=== PATIENT | male | born 1990 | race Caucasian/White ===

== ENCOUNTER 2019-01-16 10:28 | Inpatient (IN) | payer OTHER ==
[~2019-01-16] VITALS: Ht 175.3 cm; Wt 79.4 kg
[2019-01-16] MEDS ORDERED: KETOROLAC 15 MG/ML VIAL. IV ONE (10:30)
[2019-01-16] MEDS ORDERED: IV NORMAL SALINE 1000ML BAG 1,000 ML IV ONE ×2 (11:00→13:30)
[2019-01-16 11:06] LABS: BASO % 0 % (0-3); EOS % 0 % (0-3); HEMOGLOBIN 18.6 g/dL (13.0-17.5); LYMPH # 1.1 x10^3/uL (1.0-4.8); LYMPH % 6 % (24-48); MEAN CORPUSCULAR HEMOGLOBIN 30 pg (25-35); MEAN CORPUSCULAR HGB CONC 34 g/dL (31-37); MEAN CORPUSCULAR VOLUME 89 fL (79-100); MONO # 1.8 x10^3/uL (0.0-1.1); MONO % 10 % (0-9); NEUT # 15.4 x10^3uL (1.8-7.7); NEUT % 84 % (31-73); PLATELET COUNT 383 x10^3/uL (140-400); RED BLOOD COUNT 6.17 x10^6/uL (4.30-5.70); RED CELL DISTRIBUTION WIDTH 13.1 % (11.5-14.5); WHITE BLOOD COUNT 18.3 x10^3/uL (4.0-11.0)
[2019-01-16 11:15] LABS: CALCIUM 10.2 mg/dL (8.5-10.1); CREATININE 4.7 mg/dL (0.7-1.3); GFR 14.9; POTASSIUM 3.7 mmol/L (3.5-5.1)
[2019-01-16 11:20] LABS: ALBUMIN 5.7 g/dL (3.4-5.0); ALBUMIN/GLOBULIN RATIO 1.2 (1.0-1.7); TOTAL BILIRUBIN 1.1 mg/dL (0.2-1.0); TOTAL PROTEIN 10.4 g/dL (6.4-8.2)
[2019-01-16 11:28] LABS: % ATYL 1 % (0-0); % BANDS 2 % (0-9); % LYMPHS 4 % (24-48); % MONOS 7 % (0-10); % SEGS 86 % (35-66); PLT ESTIMATE ADEQUATE (ADEQUATE)
[2019-01-16] MEDS ORDERED: LIDOCAINE 2%/EPI 1:100,000 20 ML VIAL. IJ ONE (11:30)
[2019-01-16] MEDS ORDERED: NEOMY/BACITR/POLYMYXIN OINT PACKET. TP ONE (11:30)
[2019-01-16] MEDS ORDERED: ONDANSETRON PF 4 MG/2 ML VIAL. IV ONE (11:30)
[2019-01-16] MEDS ORDERED: FAMOTIDINE 20 MG/2 ML VIAL IVP ONE (11:30)
--- NOTE | 2019-01-16 11:30 | RAD ---
Right elbow, 3 views, 01/16/2019: HISTORY: Elbow laceration No fracture or dislocation is identified. No joint effusion is seen. A bandage overlies the soft tissues along the posterior aspect of the elbow. A tiny radiopacity projected over the soft tissues along the posterior aspect of the proximal ulna may lie within the soft tissues or on the surface of the patient. Clinical correlation is suggested. IMPRESSION: No significant bony abnormality is detected. Electronically signed by: Atul Howard MD (01/16/2019 11:27 AM) [facility]
[2019-01-16] MEDS ORDERED: DIPHTH,PERTUSS(ACELL),TET TOX 0.5 ML DISP.SYRIN. VAX IM ONE (11:45)
[2019-01-16] MEDS ORDERED: LIDO:MAALOX 1:1 20 ML SINGLE DOSE. ONE (12:14)
[2019-01-16] MEDS ORDERED: LIDO:MAALOX 1:1 20 ML SINGLE DOSE. PO ONE (12:30)
--- NOTE | 2019-01-16 12:35 | PHYS DOC ---
Past Medical History Past Medical History: No Pertinent History Past Surgical History: Other Additional Past Surgical Histo: HERNIA,ORCHIECTOMY Alcohol Use: Occasionally Drug Use: Marijuana Adult General Chief Complaint Chief Complaint: NAUSEA/VOMITING/DIARRHA HPI HPI Patient is a 28 year old male who presents with nausea vomiting and diarrhea since 4 AM yesterday morning. In addition, the patient presents with 2 right elbow lacerations sustained while closing a window in preparation of coming to the emergency department today. He reports the nausea, vomiting and diarrhea began after eating bad eggs at [id number]. Patient also states some mild head pain from falling after he hurt his arm. Pt states he fainted when he saw the blood on his arm, causing him to fall and hit his head. Patient denies any blood in vomitus or stool. Pt reports feeling very dehydrated at this time, but has no other complaints at this time. Review of Systems Review of Systems Constitutional: Denies fever or chills [] Eyes: Denies change in visual acuity, redness, or eye pain [] HENT: Denies nasal congestion or sore throat [] Respiratory: Denies cough or shortness of breath [] Cardiovascular: No additional information not addressed in HPI [] GI: Denies abdominal pain, nausea, vomiting, bloody stools or diarrhea [] : Denies dysuria or hematuria [] Musculoskeletal: Denies back pain or joint pain [] Integument: Denies rash or skin lesions [] Neurologic: Denies headache, focal weakness or sensory changes [] Endocrine: Denies polyuria or polydipsia [] All other systems were reviewed and found to be within normal limits, except as documented in this note. Current Medications Current Medications Current Medications Medications (Trade) Dose Ordered Sig/Candelaria Start Time Stop Time Status Last Admin Dose Admin Diphtheria/ Tetanus/Acell Pertussis (Boostrix) 0.5 ml ONCE ONCE 01/16/19 11:45 01/16/19 11:46 DC 01/16/19 12:13 0.5 ML Famotidine (Pepcid Vial) 20 mg 1X ONCE 01/16/19 11:30 01/16/19 11:31 DC 01/16/19 12:10 20 MG Ketorolac Tromethamine (Toradol 15mg Vial) 15 mg 1X ONCE 01/16/19 10:30 01/16/19 11:05 DC 01/16/19 12:10 15 MG Lidocaine/ Epinephrine (LIDOCAINE 2%-EPI 1:100,000 multi-dose) 20 ml 1X ONCE 01/16/19 11:30 01/16/19 11:31 DC 01/16/19 12:10 20 ML Lorazepam (Ativan Inj) 0.5 mg 1X ONCE 01/16/19 14:00 01/16/19 14:01 DC 01/16/19 13:48 0.5 MG Multi-Ingredient Mouthwash/Gargle (Gi Cocktail) 20 ml STK-MED ONCE 01/16/19 12:14 01/16/19 12:15 DC Neomycin/ Polymyxin/ Bacitracin (Triple Antibiotic Ointment) 1 pkt 1X ONCE 01/16/19 11:30 01/16/19 11:31 DC 01/16/19 12:00 1 PKT Ondansetron HCl (Zofran) 4 mg 1X ONCE 01/16/19 11:30 01/16/19 11:31 DC 01/16/19 12:17 4 MG Sodium Chloride 1,000 ml @ 1,000 mls/hr 1X ONCE 01/16/19 13:30 01/16/19 14:29 01/16/19 13:26 1,000 MLS/HR Allergies Allergies Allergies Coded Allergies Type Severity Reaction Last Updated Verified No Known Drug Allergies 01/16/19 No Physical Exam Physical Exam Constitutional: Well developed, well nourished, no acute distress, non-toxic appearance. [] HENT: Normocephalic, atraumatic, bilateral external ears normal, oropharynx moist, no oral exudates, nose normal. [] Eyes: PERRLA, EOMI, conjunctiva normal, no discharge. [] Neck: Normal range of motion, no tenderness, supple, no stridor. [] Cardiovascular:Heart rate regular rhythm, no murmur [] Lungs & Thorax: Bilateral breath sounds clear to auscultation [] Abdomen: Bowel sounds normal, soft, no tenderness, no masses, no pulsatile masses. [] Skin: Warm, dry, no erythema, no rash. [] Back: No tenderness, no CVA tenderness. [] Extremities: No tenderness, no cyanosis, no clubbing, ROM intact, no edema. [] Neurologic: Alert and oriented X 3, normal motor function, normal sensory function, no focal deficits noted. [] Psychologic: Affect normal, judgement normal, mood normal. [] Current Patient Data Vital Signs Vital Signs Date Time Temp Pulse Resp B/P (MAP) Pulse Ox O2 Delivery O2 Flow Rate FiO2 01/16/19 11:09 82 127/90 (102) 97 Room Air 01/16/19 10:58 99.6 18 99.6 Lab Values Laboratory Tests Test 01/16/19 10:30 White Blood Count 18.3 x10^3/uL (4.0-11.0) H Red Blood Count 6.17 x10^6/uL (4.30-5.70) H Hemoglobin 18.6 g/dL (13.0-17.5) H Hematocrit 55.0 % (39.0-53.0) H Mean Corpuscular Volume 89 fL (79-100) Mean Corpuscular Hemoglobin 30 pg (25-35) Mean Corpuscular Hemoglobin Concent 34 g/dL (31-37) Red Cell Distribution Width 13.1 % (11.5-14.5) Platelet Count 383 x10^3/uL (140-400) Neutrophils (%) (Auto) 84 % (31-73) H Lymphocytes (%) (Auto) 6 % (24-48) L Monocytes (%) (Auto) 10 % (0-9) H Eosinophils (%) (Auto) 0 % (0-3) Basophils (%) (Auto) 0 % (0-3) Neutrophils # (Auto) 15.4 x10^3uL (1.8-7.7) H Lymphocytes # (Auto) 1.1 x10^3/uL (1.0-4.8) Monocytes # (Auto) 1.8 x10^3/uL (0.0-1.1) H Eosinophils # (Auto) 0.0 x10^3/uL (0.0-0.7) Basophils # (Auto) 0.0 x10^3/uL (0.0-0.2) Segmented Neutrophils % 86 % (35-66) H Band Neutrophils % 2 % (0-9) Lymphocytes % 4 % (24-48) L Atypical Lymphocytes % (Manual) 1 % (0-0) H Monocytes % 7 % (0-10) Platelet Estimate Adequate (ADEQUATE) Sodium Level 138 mmol/L (136-145) Potassium Level 3.7 mmol/L (3.5-5.1) Chloride Level 95 mmol/L (98-107) L Carbon Dioxide Level 24 mmol/L (21-32) Anion Gap 19 (6-14) H Blood Urea Nitrogen 28 mg/dL (8-26) H Creatinine 4.7 mg/dL (0.7-1.3) H Estimated GFR (Cockcroft-Gault) 14.9 BUN/Creatinine Ratio 6 (6-20) Glucose Level 129 mg/dL (70-99) H Calcium Level 10.2 mg/dL (8.5-10.1) H Total Bilirubin 1.1 mg/dL (0.2-1.0) H Aspartate Amino Transferase (AST) 24 U/L (15-37) Alanine Aminotransferase (ALT) 22 U/L (16-63) Alkaline Phosphatase 66 U/L (46-116) Total Protein 10.4 g/dL (6.4-8.2) H Albumin 5.7 g/dL (3.4-5.0) H Albumin/Globulin Ratio 1.2 (1.0-1.7) Lipase 67 U/L (73-393) L Laboratory Tests 01/16/19 10:30 Laboratory Tests 01/16/19 10:30 EKG EKG [] Radiology/Procedures Radiology/Procedures PROCEDURE: ELBOW RIGHT 3V Right elbow, 3 views, 01/16/2019: HISTORY: Elbow laceration No fracture or dislocation is identified. No joint effusion is seen. A bandage overlies the soft tissues along the posterior aspect of the elbow. A tiny radiopacity projected over the soft tissues along the posterior aspect of the proximal ulna may lie within the soft tissues or on the surface of the patient. Clinical correlation is suggested. IMPRESSION: No significant bony abnormality is detected. Electronically signed by: Atul Howard MD (01/16/2019 11:27 AM) [facility] DICTATED and SIGNED BY: ATUL HOWARD MD DATE: 01/16/19 1127 Course & Med Decision Making Course & Med Decision Making Mr. Fuentes is a 28-year-old male who presented with nausea vomiting and diarrhea since yesterday morning. In addition he presented with a right arm laceration sustained while closing a window before coming to the emergency department. Patient was administered IV fluids due to dehydration. Zofran and Pepcid for nausea. 2 right arm lacerations were repaired with a total of 12 stitches. 7 stitches were used for the more lateral laceration. Patient requiring admission for further evaluation and treatment due to elevated creatinine. Discussed with Dr. Miguel who is in agreement with admission. Discussed findings and plan with patient and family, who acknowledge understanding and agreement. Dragon Disclaimer Dragon Disclaimer This electronic medical record was generated, in whole or in part, using a voice recognition dictation system. Departure Departure Impression: Primary Impression: Renal failure Additional Impressions: Nausea vomiting and diarrhea Laceration Disposition: ADMITTED INPATIENT Admitting Physician: Other (Riffel) Condition: GUARDED Problem Qualifiers Primary Impression: Renal failure Renal failure chronicity: acute Acute renal failure type: unspecified Qualified Codes: N17.9 - Acute kidney failure, unspecified SELENE MCGEE DO January 16, 2019 12:35
[2019-01-16] MEDS ORDERED: ONDANSETRON PF 4 MG/2 ML VIAL. IV PRN (14:15)
--- NOTE | 2019-01-16 14:22 | PDOC1 ---
History and Physical Date of Admission Date of Admission DATE: 01/16/19 TIME: 14:21 Identification/Chief Complaint Chief Complaint Right arm laceration, ONEIDA Source Source: Chart review, Patient History of Present Illness History of Present Illness Mr. Fuentes is a 28-year-old male w/ PMHx right orchiectomy 2/2 testicular cancer who presented with nausea vomiting and diarrhea since yesterday morning. In addition he presented with a right arm laceration sustained while closing a window which shattered before coming to the emergency department. Received tetanus vaccination and 2 right arm lacerations were repaired with a total of 12 stitches. 7 stitches were used for the more lateral laceration. He had labs drawn, found leukocytosis 18.3, Hb 18.6, Cr. 4.7 with protein 10.4. He is very anxious, has not been hospitalized since his orchiectomy and subsequent 2 hernia surgeries. 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 On further ROS he notes when he smokes marijuana he has these episodes of N/V and only feels better with a hot bath. Admitted for further care Past Medical History Cardiovascular: No pertinent hx Pulmonary: No pertinent hx GI: No pertinent hx Heme/Onc: Cancer (Right testicular cancer) Hepatobiliary: No pertinent hx Psych: Anxiety Rheumatologic: No pertinent hx Infectious disease: No pertinent hx ENT: No pertinent hx Renal/: No pertinent hx Endocrine: No pertinent hx Dermatology: No pertinent hx Past Surgical History Past Surgical History: Hernia Repair (x2 right inguinal), Other (R Orchiectomy) Family History Family History: Depression Social History Smoke: No ALCOHOL: occassional Drugs: Marijuana Current Problem List Problem List Problems Medical Problems: (1) Laceration Status: Acute (2) Nausea vomiting and diarrhea Status: Acute (3) Renal failure Status: Acute Current Medications Current Medications Current Medications Ondansetron HCl (Zofran) 4 mg 1X ONCE IV Last administered on 01/16/19at 12:17; Start 01/16/19 at 11:30; Stop 01/16/19 at 11:31; Status DC Famotidine (Pepcid Vial) 20 mg 1X ONCE IVP Last administered on 01/16/19at 12:10; Start 01/16/19 at 11:30; Stop 01/16/19 at 11:31; Status DC Ketorolac Tromethamine (Toradol 15mg Vial) 15 mg 1X ONCE IV Last administered on 01/16/19 12:10; Start 01/16/19 at 10:30; Stop 01/16/19 at 11:05; Status DC Sodium Chloride 1,000 ml @ 1,000 mls/hr 1X ONCE IV Last administered on 01/16/19at 12:09; Start 01/16/19 at 11:00; Stop 01/16/19 at 11:59; Status DC Neomycin/ Polymyxin/ Bacitracin (Triple Antibiotic Ointment) 1 pkt 1X ONCE TP Last administered on 01/16/19at 12:00; Start 01/16/19 at 11:30; Stop 01/16/19 at 11:31; Status DC Lidocaine/ Epinephrine (LIDOCAINE 2%-EPI 1:100,000 multi-dose) 20 ml 1X ONCE IJ Last administered on 01/16/19at 12:10; Start 01/16/19 at 11:30; Stop 01/16/19 at 11:31; Status DC Diphtheria/ Tetanus/Acell Pertussis (Boostrix) 0.5 ml ONCE ONCE VAX IM Last administered on 01/16/19at 12:13; Start 01/16/19 at 11:45; Stop 01/16/19 at 11:46; Status DC Multi-Ingredient Mouthwash/Gargle (Gi Cocktail) 20 ml 1X ONCE PO Last administered on 01/16/19at 12:19; Start 01/16/19 at 12:30; Stop 01/16/19 at 12:31; Status DC Multi-Ingredient Mouthwash/Gargle (Gi Cocktail) 20 ml STK-MED ONCE .ROUTE ; Start 01/16/19 at 12:14; Stop 01/16/19 at 12:15; Status DC Sodium Chloride 1,000 ml @ 1,000 mls/hr 1X ONCE IV Last administered on 01/16/19at 13:26; Start 01/16/19 at 13:30; Stop 01/16/19 at 14:29 Lorazepam (Ativan Inj) 0.5 mg 1X ONCE IV Last administered on 01/16/19at 13:48; Start 01/16/19 at 14:00; Stop 01/16/19 at 14:01; Status DC Ondansetron HCl (Zofran) 4 mg PRN Q8HRS PRN IV NAUSEA/VOMITING; Start 01/16/19 at 14:15; Stop 01/17/19 at 14:14 Sodium Chloride 1,000 ml @ 150 mls/hr Q6H40M IV ; Start 01/16/19 at 15:00; Stop 01/16/19 at 21:39 Allergies Allergies: Coded Allergies: No Known Drug Allergies (Unverified , 01/16/19) ROS General: YES: Fatigue; No: Chills, Night Sweats, Malaise, Appetite, Other PSYCHOLOGICAL ROS: YES: Anxiety; No: Behavioral Disorder, Concentration difficultie, Decreased libido, Depression, Disorientation, Hallucinations, Hostility, Irritablity, Memory difficulties, Mood Swings, Obsessive thoughts, Physical abuse, Sexual abuse, Sleep disturbances, Suicidal ideation, Other Eyes: No Blurry vision, No Decreased vision, No Double vision, No Dry eyes, No Excessive tearing, No Eye Pain, No Itchy Eyes, No Loss of vision, No Photophobia, No Scotomata, No Uses contacts, No Uses glasses, No Other HEENT: No: Heacaches, Visual Changes, Hearing change, Nasal congestion, Nasal discharge, Oral lesions, Sinus pain, Sore Throat, Epistaxis, Sneezing, Snoring, Tinnitus, Vertigo, Vocal changes, Other ALLERGY AND IMMUNOLOGY: No: Hives, Insect Bite Sensitivity, Itchy/Watery Eyes, Nasal Congestion, Post Nasal Drip, Seasonal Allergies, Other Hematological and Lymphatic: No: Bleeding Problems, Blood Clots, Blood Transfusions, Brusing, Night Sweats, Pallor, Swollen Lymph Nodes, Other ENDOCRINE: No: Breast Changes, Galactorrhea, Hair Pattern Changes, Hot Flashes, Malaise/lethargy, Mood Swings, Palpitations, Polydipsia/polyuria, Skin Changes, Temperature Intolerance, Unexpected Weight Changes, Other Breast: No New/Changing Breast Lumps, No Nipple changes, No Nipple discharge, No Other Respiratory: No: Cough, Hemoptysis, Orthopnea, Pleuritic Pain, Shortness of breath, SOB with excertion, Sputum Changes, Stridor, Tachypnea, Wheezing, Other Cardiovascular: No Chest Pain, No Palpitations, No Orthopnea, No Paroxysmal Noc. Dyspnea, No Edema, No Lt Headedness, No Other Gastrointestinal: Yes Nausea, Yes Diarrhea; No Vomiting, No Abdominal Pain, No Constipation, No Melena, No Hematochezia, No Other Genitourinary: No Dysuria, No Frequency, No Incontinence, No Hematuria, No Retention, No Discharge, No Urgency, No Pain, No Flank Pain, No Other, No , No , No , No , No , No , No Musculoskeletal: No Gait Disturbance, No Joint Pain, No Joint Stiffness, No J oint Swelling, No Muscle Pain, No Muscular Weakness, No Pain In:, No Swelling In:, No Other Neurological: No Behavorial Changes, No Bowel/Bladder ControlChng, No Confusion, No Dizziness, No Gait Disturbance, No Headaches, No Impaired Coord/balance, No Memory Loss, No Numbness/Tingling, No Seizures, No Speech Problems, No Tremors, No Visual Changes, No Weakness, No Other Skin: No Dry Skin, No Eczema, No Hair Changes, No Lumps, No Mole Changes, No Mottling, No Nail Changes, No Pruritus, No Rash, No Skin Lesion Changes, No Other, No Acne Physical Exam General: Alert, Oriented X3, Cooperative, No acute distress HEENT: Atraumatic, PERRLA, EOMI, Mucous membr. moist/pink Lungs: Clear to auscultation, Normal air movement Heart: S1S2, RRR, no gallops, no murmurs Abdomen: Normal bowel sounds, Soft, No tenderness, No hepatosplenomegaly, No masses Extremities: No clubbing, No cyanosis, No edema, Normal pulses, Other (Right elbow laceration) Skin: No rashes, No breakdown, No significant lesion Neuro: Normal gait, Normal speech, Strength at 5/5 X4 ext, Normal tone, Sensation intact, Cranial nerves 3-12 NL, Reflexes 2+ Psych/Mental Status: Mental status NL, Mood NL Vitals Vitals Vital Signs Date Time Temp Pulse Resp B/P (MAP) Pulse Ox O2 Delivery O2 Flow Rate FiO2 01/16/19 11:09 82 127/90 (102) 97 Room Air 01/16/19 10:58 99.6 18 99.6 Labs Labs Laboratory Tests Test 01/16/19 10:30 White Blood Count 18.3 x10^3/uL (4.0-11.0) Red Blood Count 6.17 x10^6/uL (4.30-5.70) Hemoglobin 18.6 g/dL (13.0-17.5) Hematocrit 55.0 % (39.0-53.0) Mean Corpuscular Volume 89 fL (79-100) Mean Corpuscular Hemoglobin 30 pg (25-35) Mean Corpuscular Hemoglobin Concent 34 g/dL (31-37) Red Cell Distribution Width 13.1 % (11.5-14.5) Platelet Count 383 x10^3/uL (140-400) Neutrophils (%) (Auto) 84 % (31-73) Lymphocytes (%) (Auto) 6 % (24-48) Monocytes (%) (Auto) 10 % (0-9) Eosinophils (%) (Auto) 0 % (0-3) Basophils (%) (Auto) 0 % (0-3) Neutrophils # (Auto) 15.4 x10^3uL (1.8-7.7) Lymphocytes # (Auto) 1.1 x10^3/uL (1.0-4.8) Monocytes # (Auto) 1.8 x10^3/uL (0.0-1.1) Eosinophils # (Auto) 0.0 x10^3/uL (0.0-0.7) Basophils # (Auto) 0.0 x10^3/uL (0.0-0.2) Segmented Neutrophils % 86 % (35-66) Band Neutrophils % 2 % (0-9) Lymphocytes % 4 % (24-48) Atypical Lymphocytes % (Manual) 1 % (0-0) Monocytes % 7 % (0-10) Platelet Estimate Adequate (ADEQUATE) Sodium Level 138 mmol/L (136-145) Potassium Level 3.7 mmol/L (3.5-5.1) Chloride Level 95 mmol/L (98-107) Carbon Dioxide Level 24 mmol/L (21-32) Anion Gap 19 (6-14) Blood Urea Nitrogen 28 mg/dL (8-26) Creatinine 4.7 mg/dL (0.7-1.3) Estimated GFR (Cockcroft-Gault) 14.9 BUN/Creatinine Ratio 6 (6-20) Glucose Level 129 mg/dL (70-99) Calcium Level 10.2 mg/dL (8.5-10.1) Total Bilirubin 1.1 mg/dL (0.2-1.0) Aspartate Amino Transf (AST/SGOT) 24 U/L (15-37) Alanine Aminotransferase (ALT/SGPT) 22 U/L (16-63) Alkaline Phosphatase 66 U/L (46-116) Creatine Kinase 273 U/L (39-308) Total Protein 10.4 g/dL (6.4-8.2) Albumin 5.7 g/dL (3.4-5.0) Albumin/Globulin Ratio 1.2 (1.0-1.7) Lipase 67 U/L (73-393) Laboratory Tests Test 01/16/19 10:30 White Blood Count 18.3 x10^3/uL (4.0-11.0) Red Blood Count 6.17 x10^6/uL (4.30-5.70) Hemoglobin 18.6 g/dL (13.0-17.5) Hematocrit 55.0 % (39.0-53.0) Mean Corpuscular Volume 89 fL (79-100) Mean Corpuscular Hemoglobin 30 pg (25-35) Mean Corpuscular Hemoglobin Concent 34 g/dL (31-37) Red Cell Distribution Width 13.1 % (11.5-14.5) Platelet Count 383 x10^3/uL (140-400) Neutrophils (%) (Auto) 84 % (31-73) Lymphocytes (%) (Auto) 6 % (24-48) Monocytes (%) (Auto) 10 % (0-9) Eosinophils (%) (Auto) 0 % (0-3) Basophils (%) (Auto) 0 % (0-3) Neutrophils # (Auto) 15.4 x10^3uL (1.8-7.7) Lymphocytes # (Auto) 1.1 x10^3/uL (1.0-4.8) Monocytes # (Auto) 1.8 x10^3/uL (0.0-1.1) Eosinophils # (Auto) 0.0 x10^3/uL (0.0-0.7) Basophils # (Auto) 0.0 x10^3/uL (0.0-0.2) Segmented Neutrophils % 86 % (35-66) Band Neutrophils % 2 % (0-9) Lymphocytes % 4 % (24-48) Atypical Lymphocytes % (Manual) 1 % (0-0) Monocytes % 7 % (0-10) Platelet Estimate Adequate (ADEQUATE) Sodium Level 138 mmol/L (136-145) Potassium Level 3.7 mmol/L (3.5-5.1) Chloride Level 95 mmol/L (98-107) Carbon Dioxide Level 24 mmol/L (21-32) Anion Gap 19 (6-14) Blood Urea Nitrogen 28 mg/dL (8-26) Creatinine 4.7 mg/dL (0.7-1.3) Estimated GFR (Cockcroft-Gault) 14.9 BUN/Creatinine Ratio 6 (6-20) Glucose Level 129 mg/dL (70-99) Calcium Level 10.2 mg/dL (8.5-10.1) Total Bilirubin 1.1 mg/dL (0.2-1.0) Aspartate Amino Transf (AST/SGOT) 24 U/L (15-37) Alanine Aminotransferase (ALT/SGPT) 22 U/L (16-63) Alkaline Phosphatase 66 U/L (46-116) Creatine Kinase 273 U/L (39-308) Total Protein 10.4 g/dL (6.4-8.2) Albumin 5.7 g/dL (3.4-5.0) Albumin/Globulin Ratio 1.2 (1.0-1.7) Lipase 67 U/L (73-393) Images Images Right elbow XR - No significant bony abnormality is detected. VTE Prophylaxis Ordered VTE Prophylaxis Devices: Yes VTE Pharmacological Prophylaxi: No Assessment/Plan Assessment/Plan A/P: ONEIDA - Likely vasomotor nephropathy from his vomiting and diarrhea. No more stools or vomiting at this time. Will give aggressive IVF and consult nephrology. Check urine lytes N/V - sounds likely marijuana hyperemesis syndrome, avoid marijuana. Could also be cyclical vomiting. Will monitor, antiemetics. Ok to eat Right elbow laceration - triple antibiotic ointment, remove sutures in 7-10 days Leukocytosis - technically meets SIRS criteria, could have been septic from a gastroenteritis recently. Would not treat this with antibiotics. He has no other signs of a different possible infectious source. Trend CBC H/O testicular cancer - no f/u since his orchiectomy at age 13. This was 2/2 an undescended teste. I have informed him he is at risk of left sided testicular cancer due to his prior history and should have f/u at some point for this Anxiety - likely 2/2 hospital setting from being hospitalized as a child. Will start buspar and give prn ativan Marijuana use disorder - advised to back off or quit FEN - General diet. NSS 125cc/hr PPX - SCDs FULL CODE Inpatient for ONEIDA likely 2/2 gastroenteritis, possibly needs 2 midnights. NGUYỄN VILLASENOR MD January 16, 2019 14:22
[2019-01-16] MEDS ORDERED: IV NORMAL SALINE 1000ML BAG 1,000 ML IV SCH (15:00)
[2019-01-16] MEDS ORDERED: LORazepam 0.5 MG TABLET PO PRN (16:15)
[2019-01-16] MEDS ORDERED: busPIRone 5 MG TABLET. PO PRN (16:15)
[2019-01-16] MEDS ORDERED: ACETAMINOPHEN 325 MG TABLET. PO PRN (16:15)
[2019-01-16 19:00] VITALS: BP 122/77
[2019-01-16 20:42] LABS: BILIRUBIN,URINE SMALL (NEG); CLARITY,URINE CLOUDY; COLOR,URINE AMBER; NITRITE,URINE NEGATIVE (NEG); PROTEIN,URINE 100 mg/dL (NEG-TRACE); UROBILINOGEN,URINE 0.2 mg/dL (0.2 mg/dL)
[2019-01-16 20:56] LABS: BACTERIA,URINE 0 /HPF (0-FEW); RBC,URINE 0 /HPF (0-2)
[2019-01-16 20:57] LABS: SQUAMOUS EPITHELIAL CELL,UR OCC /LPF
[2019-01-16 20:58] LABS: GRANULAR CASTS,URINE FEW /HPF; HYALINE CASTS, URINE MANY /HPF
[2019-01-16 23:00] VITALS: BP 140/81
[2019-01-17 07:00] VITALS: BP 107/59
--- NOTE | 2019-01-17 08:58 | PDOC ---
PROGRESS NOTES Chief Complaint Chief Complaint A/P: ONEIDA - Likely vasomotor nephropathy from his vomiting and diarrhea. No more stools or vomiting at this time. Will give aggressive IVF and consult nephrology. Check urine lytes N/V - sounds likely marijuana hyperemesis syndrome, avoid marijuana. Could also be cyclical vomiting. Will monitor, antiemetics. Ok to eat Right elbow laceration - triple antibiotic ointment, remove sutures in 7-10 days Leukocytosis - technically meets SIRS criteria, could have been septic from a gastroenteritis recently. Would not treat this with antibiotics. He has no other signs of a different possible infectious source. Trend CBC H/O testicular cancer - no f/u since his orchiectomy at age 13. This was 2/2 an undescended teste. I have informed him he is at risk of left sided testicular cancer due to his prior history and should have f/u at some point for this Anxiety - likely 2/2 hospital setting from being hospitalized as a child. Will start buspar and give prn ativan Marijuana use disorder - advised to back off or quit FEN - General diet. LR 150cc/hr PPX - SCDs FULL CODE Inpatient for ONEIDA likely 2/2 gastroenteritis, possibly needs 2 midnights. History of Present Illness History of Present Illness Mr. Fuentes is a 28-year-old male w/ PMHx right orchiectomy 2/2 testicular cancer who presented with nausea vomiting and diarrhea since yesterday morning. In addition he presented with a right arm laceration sustained while closing a window which shattered before coming to the emergency department. Received tetanus vaccination and 2 right arm lacerations were repaired with a total of 12 stitches. 7 stitches were used for the more lateral laceration. He had labs drawn, found leukocytosis 18.3, Hb 18.6, Cr. 4.7 with protein 10.4. He is very anxious, has not been hospitalized since his orchiectomy and subsequent 2 hernia surgeries. 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 Admitted for further care Overnight was anxious, this morning eating. Labs just now drawn, pending results. His right elbow is hurting him pretty badly today, 03/12. Good UOP Vitals Vitals Vital Signs Date Time Temp Pulse Resp B/P (MAP) Pulse Ox O2 Delivery O2 Flow Rate FiO2 01/17/19 07:00 98.1 49 18 107/59 (75) 98 Room Air 98.1 Physical Exam General: Alert, Oriented X3, Cooperative, No acute distress Abdomen: Normal bowel sounds, Soft, No tenderness, No hepatosplenomegaly, No masses Extremities: No clubbing, No cyanosis, No edema, Normal pulses, Other (Right elbow laceration) Skin: No rashes, No breakdown, No significant lesion Labs LABS Laboratory Tests Test 01/16/19 10:30 01/16/19 20:35 White Blood Count 18.3 x10^3/uL (4.0-11.0) Red Blood Count 6.17 x10^6/uL (4.30-5.70) Hemoglobin 18.6 g/dL (13.0-17.5) Hematocrit 55.0 % (39.0-53.0) Mean Corpuscular Volume 89 fL (79-100) Mean Corpuscular Hemoglobin 30 pg (25-35) Mean Corpuscular Hemoglobin Concent 34 g/dL (31-37) Red Cell Distribution Width 13.1 % (11.5-14.5) Platelet Count 383 x10^3/uL (140-400) Neutrophils (%) (Auto) 84 % (31-73) Lymphocytes (%) (Auto) 6 % (24-48) Monocytes (%) (Auto) 10 % (0-9) Eosinophils (%) (Auto) 0 % (0-3) Basophils (%) (Auto) 0 % (0-3) Neutrophils # (Auto) 15.4 x10^3uL (1.8-7.7) Lymphocytes # (Auto) 1.1 x10^3/uL (1.0-4.8) Monocytes # (Auto) 1.8 x10^3/uL (0.0-1.1) Eosinophils # (Auto) 0.0 x10^3/uL (0.0-0.7) Basophils # (Auto) 0.0 x10^3/uL (0.0-0.2) Segmented Neutrophils % 86 % (35-66) Band Neutrophils % 2 % (0-9) Lymphocytes % 4 % (24-48) Atypical Lymphocytes % (Manual) 1 % (0-0) Monocytes % 7 % (0-10) Platelet Estimate Adequate (ADEQUATE) Sodium Level 138 mmol/L (136-145) Potassium Level 3.7 mmol/L (3.5-5.1) Chloride Level 95 mmol/L (98-107) Carbon Dioxide Level 24 mmol/L (21-32) Anion Gap 19 (6-14) Blood Urea Nitrogen 28 mg/dL (8-26) Creatinine 4.7 mg/dL (0.7-1.3) Estimated GFR (Cockcroft-Gault) 14.9 BUN/Creatinine Ratio 6 (6-20) Glucose Level 129 mg/dL (70-99) Calcium Level 10.2 mg/dL (8.5-10.1) Total Bilirubin 1.1 mg/dL (0.2-1.0) Aspartate Amino Transf (AST/SGOT) 24 U/L (15-37) Alanine Aminotransferase (ALT/SGPT) 22 U/L (16-63) Alkaline Phosphatase 66 U/L (46-116) Creatine Kinase 273 U/L (39-308) Total Protein 10.4 g/dL (6.4-8.2) Albumin 5.7 g/dL (3.4-5.0) Albumin/Globulin Ratio 1.2 (1.0-1.7) Lipase 67 U/L (73-393) Urine Collection Type Unknown Urine Color Jenny Urine Clarity Cloudy Urine pH 5.0 Urine Specific [place] 1.025 Urine Protein 100 mg/dL (NEG-TRACE) Urine Glucose (UA) Negative mg/dL (NEG) Urine Ketones (Stick) Trace mg/dL (NEG) Urine Blood Negative (NEG) Urine Nitrite Negative (NEG) Urine Bilirubin Small (NEG) Urine Urobilinogen Dipstick 0.2 mg/dL (0.2 mg/dL) Urine Leukocyte Esterase Trace (NEG) Urine RBC 0 /HPF (0-2) Urine WBC 5-10 /HPF (0-4) Urine Squamous Epithelial Cells Occ /LPF Urine Transitional Epithelial Cells Occ /LPF Urine Bacteria 0 /HPF (0-FEW) Urine Hyaline Casts Many /HPF Urine Granular Casts Few /HPF Urine Mucus Mod /LPF Urine Random Creatinine 578.0 mg/dL (Not Establ.) Urine Random Total Protein 109.6 mg/dL (Not Establ.) Assessment and Plan Assessmemt and Plan Problems Medical Problems: (1) Laceration Status: Acute (2) Nausea vomiting and diarrhea Status: Acute (3) Renal failure Status: Acute Comment Review of Relevant I have reviewed the following items estelle (where applicable) has been applied. Labs Laboratory Tests Test 01/16/19 10:30 01/16/19 20:35 White Blood Count 18.3 x10^3/uL (4.0-11.0) Red Blood Count 6.17 x10^6/uL (4.30-5.70) Hemoglobin 18.6 g/dL (13.0-17.5) Hematocrit 55.0 % (39.0-53.0) Mean Corpuscular Volume 89 fL (79-100) Mean Corpuscular Hemoglobin 30 pg (25-35) Mean Corpuscular Hemoglobin Concent 34 g/dL (31-37) Red Cell Distribution Width 13.1 % (11.5-14.5) Platelet Count 383 x10^3/uL (140-400) Neutrophils (%) (Auto) 84 % (31-73) Lymphocytes (%) (Auto) 6 % (24-48) Monocytes (%) (Auto) 10 % (0-9) Eosinophils (%) (Auto) 0 % (0-3) Basophils (%) (Auto) 0 % (0-3) Neutrophils # (Auto) 15.4 x10^3uL (1.8-7.7) Lymphocytes # (Auto) 1.1 x10^3/uL (1.0-4.8) Monocytes # (Auto) 1.8 x10^3/uL (0.0-1.1) Eosinophils # (Auto) 0.0 x10^3/uL (0.0-0.7) Basophils # (Auto) 0.0 x10^3/uL (0.0-0.2) Segmented Neutrophils % 86 % (35-66) Band Neutrophils % 2 % (0-9) Lymphocytes % 4 % (24-48) Atypical Lymphocytes % (Manual) 1 % (0-0) Monocytes % 7 % (0-10) Platelet Estimate Adequate (ADEQUATE) Sodium Level 138 mmol/L (136-145) Potassium Level 3.7 mmol/L (3.5-5.1) Chloride Level 95 mmol/L (98-107) Carbon Dioxide Level 24 mmol/L (21-32) Anion Gap 19 (6-14) Blood Urea Nitrogen 28 mg/dL (8-26) Creatinine 4.7 mg/dL (0.7-1.3) Estimated GFR (Cockcroft-Gault) 14.9 BUN/Creatinine Ratio 6 (6-20) Glucose Level 129 mg/dL (70-99) Calcium Level 10.2 mg/dL (8.5-10.1) Total Bilirubin 1.1 mg/dL (0.2-1.0) Aspartate Amino Transf (AST/SGOT) 24 U/L (15-37) Alanine Aminotransferase (ALT/SGPT) 22 U/L (16-63) Alkaline Phosphatase 66 U/L (46-116) Creatine Kinase 273 U/L (39-308) Total Protein 10.4 g/dL (6.4-8.2) Albumin 5.7 g/dL (3.4-5.0) Albumin/Globulin Ratio 1.2 (1.0-1.7) Lipase 67 U/L (73-393) Urine Collection Type Unknown Urine Color Jenny Urine Clarity Cloudy Urine pH 5.0 Urine Specific [place] 1.025 Urine Protein 100 mg/dL (NEG-TRACE) Urine Glucose (UA) Negative mg/dL (NEG) Urine Ketones (Stick) Trace mg/dL (NEG) Urine Blood Negative (NEG) Urine Nitrite Negative (NEG) Urine Bilirubin Small (NEG) Urine Urobilinogen Dipstick 0.2 mg/dL (0.2 mg/dL) Urine Leukocyte Esterase Trace (NEG) Urine RBC 0 /HPF (0-2) Urine WBC 5-10 /HPF (0-4) Urine Squamous Epithelial Cells Occ /LPF Urine Transitional Epithelial Cells Occ /LPF Urine Bacteria 0 /HPF (0-FEW) Urine Hyaline Casts Many /HPF Urine Granular Casts Few /HPF Urine Mucus Mod /LPF Urine Random Creatinine 578.0 mg/dL (Not Establ.) Urine Random Total Protein 109.6 mg/dL (Not Establ.) Laboratory Tests Test 01/16/19 10:30 01/16/19 20:35 White Blood Count 18.3 x10^3/uL (4.0-11.0) Red Blood Count 6.17 x10^6/uL (4.30-5.70) Hemoglobin 18.6 g/dL (13.0-17.5) Hematocrit 55.0 % (39.0-53.0) Mean Corpuscular Volume 89 fL (79-100) Mean Corpuscular Hemoglobin 30 pg (25-35) Mean Corpuscular Hemoglobin Concent 34 g/dL (31-37) Red Cell Distribution Width 13.1 % (11.5-14.5) Platelet Count 383 x10^3/uL (140-400) Neutrophils (%) (Auto) 84 % (31-73) Lymphocytes (%) (Auto) 6 % (24-48) Monocytes (%) (Auto) 10 % (0-9) Eosinophils (%) (Auto) 0 % (0-3) Basophils (%) (Auto) 0 % (0-3) Neutrophils # (Auto) 15.4 x10^3uL (1.8-7.7) Lymphocytes # (Auto) 1.1 x10^3/uL (1.0-4.8) Monocytes # (Auto) 1.8 x10^3/uL (0.0-1.1) Eosinophils # (Auto) 0.0 x10^3/uL (0.0-0.7) Basophils # (Auto) 0.0 x10^3/uL (0.0-0.2) Segmented Neutrophils % 86 % (35-66) Band Neutrophils % 2 % (0-9) Lymphocytes % 4 % (24-48) Atypical Lymphocytes % (Manual) 1 % (0-0) Monocytes % 7 % (0-10) Platelet Estimate Adequate (ADEQUATE) Sodium Level 138 mmol/L (136-145) Potassium Level 3.7 mmol/L (3.5-5.1) Chloride Level 95 mmol/L (98-107) Carbon Dioxide Level 24 mmol/L (21-32) Anion Gap 19 (6-14) Blood Urea Nitrogen 28 mg/dL (8-26) Creatinine 4.7 mg/dL (0.7-1.3) Estimated GFR (Cockcroft-Gault) 14.9 BUN/Creatinine Ratio 6 (6-20) Glucose Level 129 mg/dL (70-99) Calcium Level 10.2 mg/dL (8.5-10.1) Total Bilirubin 1.1 mg/dL (0.2-1.0) Aspartate Amino Transf (AST/SGOT) 24 U/L (15-37) Alanine Aminotransferase (ALT/SGPT) 22 U/L (16-63) Alkaline Phosphatase 66 U/L (46-116) Creatine Kinase 273 U/L (39-308) Total Protein 10.4 g/dL (6.4-8.2) Albumin 5.7 g/dL (3.4-5.0) Albumin/Globulin Ratio 1.2 (1.0-1.7) Lipase 67 U/L (73-393) Urine Collection Type Unknown Urine Color Jenny Urine Clarity Cloudy Urine pH 5.0 Urine Specific [place] 1.025 Urine Protein 100 mg/dL (NEG-TRACE) Urine Glucose (UA) Negative mg/dL (NEG) Urine Ketones (Stick) Trace mg/dL (NEG) Urine Blood Negative (NEG) Urine Nitrite Negative (NEG) Urine Bilirubin Small (NEG) Urine Urobilinogen Dipstick 0.2 mg/dL (0.2 mg/dL) Urine Leukocyte Esterase Trace (NEG) Urine RBC 0 /HPF (0-2) Urine WBC 5-10 /HPF (0-4) Urine Squamous Epithelial Cells Occ /LPF Urine Transitional Epithelial Cells Occ /LPF Urine Bacteria 0 /HPF (0-FEW) Urine Hyaline Casts Many /HPF Urine Granular Casts Few /HPF Urine Mucus Mod /LPF Urine Random Creatinine 578.0 mg/dL (Not Establ.) Urine Random Total Protein 109.6 mg/dL (Not Establ.) Medications Current Medications Ondansetron HCl (Zofran) 4 mg 1X ONCE IV Last administered on 01/16/19at 12:17; Start 01/16/19 at 11:30; Stop 01/16/19 at 11:31; Status DC Famotidine (Pepcid Vial) 20 mg 1X ONCE IVP Last administered on 01/16/19at 12:10; Start 01/16/19 at 11:30; Stop 01/16/19 at 11:31; Status DC Ketorolac Tromethamine (Toradol 15mg Vial) 15 mg 1X ONCE IV Last administered on 01/16/19at 12:10; Start 01/16/19 at 10:30; Stop 01/16/19 at 11:05; Status DC Sodium Chloride 1,000 ml @ 1,000 mls/hr 1X ONCE IV Last administered on 01/16/19at 12:09; Start 01/16/19 at 11:00; Stop 01/16/19 at 11:59; Status DC Neomycin/ Polymyxin/ Bacitracin (Triple Antibiotic Ointment) 1 pkt 1X ONCE TP Last administered on 01/16/19at 12:00; Start 01/16/19 at 11:30; Stop 01/16/19 at 11:31; Status DC Lidocaine/ Epinephrine (LIDOCAINE 2%-EPI 1:100,000 multi-dose) 20 ml 1X ONCE IJ Last administered on 01/16/19at 12:10; Start 01/16/19 at 11:30; Stop 01/16/19 at 11:31; Status DC Diphtheria/ Tetanus/Acell Pertussis (Boostrix) 0.5 ml ONCE ONCE VAX IM Last administered on 01/16/19 12:13; Start 01/16/19 at 11:45; Stop 01/16/19 at 11:46; Status DC Multi-Ingredient Mouthwash/Gargle (Gi Cocktail) 20 ml 1X ONCE PO Last administered on 01/16/19at 12:19; Start 01/16/19 at 12:30; Stop 01/16/19 at 12:31; Status DC Multi-Ingredient Mouthwash/Gargle (Gi Cocktail) 20 ml STK-MED ONCE .ROUTE ; Start 01/16/19 at 12:14; Stop 01/16/19 at 12:15; Status DC Sodium Chloride 1,000 ml @ 1,000 mls/hr 1X ONCE IV Last administered on 01/16/19at 13:26; Start 01/16/19 at 13:30; Stop 01/16/19 at 14:29; Status DC Lorazepam (Ativan Inj) 0.5 mg 1X ONCE IV Last administered on 01/16/19at 13:48; Start 01/16/19 at 14:00; Stop 01/16/19 at 14:01; Status DC Ondansetron HCl (Zofran) 4 mg PRN Q8HRS PRN IV NAUSEA/VOMITING; Start 01/16/19 at 14:15; Stop 01/17/19 at 14:14 Sodium Chloride 1,000 ml @ 150 mls/hr Q6H40M IV Last administered on 01/16/19at 15:00; Start 01/16/19 at 15:00; Stop 01/17/19 at 04:18; Status DC Buspirone HCl (Buspar) 5 mg PRN TID PRN PO anxiety; Start 01/16/19 at 16:15 Lorazepam (Ativan) 0.5 mg PRN Q8HRS PRN PO ANXIETY / AGITATION Last administered on 01/16/19at 21:05; Start 01/16/19 at 16:15 Lorazepam (Ativan Inj) 0.5 mg PRN Q4HRS PRN IV ANXIETY / AGITATION Last administered on 01/17/19at 01:32; Start 01/16/19 at 16:15 Acetaminophen (Tylenol) 650 mg PRN Q6HRS PRN PO pain; Start 01/16/19 at 16:15 Vitals/I & O Vital Sign - Last 24 Hours 01/16/19 01/16/19 01/16/19 01/16/19 10:58 11:09 19:00 20:00 Temp 99.6 98.8 99.6 98.8 Pulse 98 82 78 Resp 18 18 B/P (MAP) 133/77 (95) 127/90 (102) 122/77 (92) Pulse Ox 99 97 96 O2 Delivery Room Air Room Air Room Air Room Air 01/16/19 01/17/19 01/17/19 23:00 03:00 07:00 Temp 98.2 98.1 98.2 98.1 Pulse 78 49 Resp 18 18 B/P (MAP) 140/81 (100) 107/59 (75) Pulse Ox 99 98 O2 Delivery Room Air Room Air Room Air Intake and Output 01/16/19 01/16/19 01/17/19 15:00 23:00 07:00 Intake Total 1000 ml 100 ml 0 ml Balance 1000 ml 100 ml 0 ml NGUYỄN VILLASENOR MD January 17, 2019 08:58
[2019-01-17] MEDS ORDERED: IV NORMAL SALINE 1000ML BAG 1,000 ML IV SCH (10:00)
[2019-01-17 11:00] VITALS: BP 125/74
[2019-01-17] MEDS: IV RINGERS,LACTATED 1000ML 1,000 ML IV SCH ×3 (11:01→23:01)
[2019-01-17 12:04] LABS: BASO % 0 % (0-3); EOS # 0.1 x10^3/uL (0.0-0.7); EOS % 1 % (0-3); HEMATOCRIT 43.9 % (39.0-53.0); HEMOGLOBIN 15.2 g/dL (13.0-17.5); LYMPH # 1.6 x10^3/uL (1.0-4.8); LYMPH % 19 % (24-48); MEAN CORPUSCULAR HEMOGLOBIN 31 pg (25-35); MEAN CORPUSCULAR HGB CONC 35 g/dL (31-37); MEAN CORPUSCULAR VOLUME 90 fL (79-100); MONO # 0.7 x10^3/uL (0.0-1.1); MONO % 9 % (0-9); NEUT # 6.1 x10^3uL (1.8-7.7); NEUT % 71 % (31-73); PLATELET COUNT 225 x10^3/uL (140-400); RED BLOOD COUNT 4.86 x10^6/uL (4.30-5.70); RED CELL DISTRIBUTION WIDTH 12.9 % (11.5-14.5); WHITE BLOOD COUNT 8.6 x10^3/uL (4.0-11.0)
[2019-01-17 12:28] LABS: ALBUMIN 3.6 g/dL (3.4-5.0); CALCIUM 8.5 mg/dL (8.5-10.1); CREATININE 1.3 mg/dL (0.7-1.3); GFR 65.7; PHOSPHORUS 2.6 mg/dL (2.6-4.7); POTASSIUM 3.8 mmol/L (3.5-5.1)
--- NOTE | 2019-01-17 12:32 | PDOC2 ---
CONSULT Date of Consult Date of Consult DATE: 01/17/19 TIME: 12:18 Reason for Consult Reason for Consult: ONEIDA Source Source: Chart review, Patient History of Present Illness Reason for Visit: Pt is a 28-year-old CM w/ PMHx right orchiectomy 2/2 testicular cancer who presented with nausea vomiting and diarrhea . He also sustained right arm laceration while closing a window which shattered Repaired with a total of 12 stitches. He reports he had simialr wpisodes many times after he eats hevy food at night but it resolves in few hrs. This time he continued Vomiting ll day and Noted decrease in UOP . In 15 hrs had UOP x2 - " Just dribble" Since he has been hiospitalized, UOP has Improved significantly He is c/o Occ Severe Bilat Flank pain Lt > Rt , None currently. Denies Hx of Kidney stones , No Gross hematuria Labs- WBC 18.3, Hb 18.6, Cr. 4.7 with protein 10.4. He is very anxious, has not been hospitalized since his orchiectomy and subsequent 2 hernia surgeries. 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 Currently c/o pain at the site of injury. No N/V/D. No F/C. Good UOP Past Medical History Cardiovascular: No pertinent hx Pulmonary: No pertinent hx GI: No pertinent hx Heme/Onc: Cancer (Right testicular cancer) Hepatobiliary: No pertinent hx Psych: Anxiety Rheumatologic: No pertinent hx Infectious disease: No pertinent hx ENT: No pertinent hx Renal/: No pertinent hx Endocrine: No pertinent hx Dermatology: No pertinent hx Past Surgical History Past Surgical History: Hernia Repair (x2 right inguinal), Other (R Orchiectomy) Family History Family History: Depression Social History No ALCOHOL: occassional Drugs: Marijuana Current Problem List Problem List Problems Medical Problems: (1) Laceration Status: Acute (2) Nausea vomiting and diarrhea Status: Acute (3) Renal failure Status: Acute Current Medications Current Medications Current Medications Ondansetron HCl (Zofran) 4 mg 1X ONCE IV Last administered on 01/16/19at 12:17; Start 01/16/19 at 11:30; Stop 01/16/19 at 11:31; Status DC Famotidine (Pepcid Vial) 20 mg 1X ONCE IVP Last administered on 01/16/19at 12:10; Start 01/16/19 at 11:30; Stop 01/16/19 at 11:31; Status DC Ketorolac Tromethamine (Toradol 15mg Vial) 15 mg 1X ONCE IV Last administered on 01/16/19at 12:10; Start 01/16/19 at 10:30; Stop 01/16/19 at 11:05; Status DC Sodium Chloride 1,000 ml @ 1,000 mls/hr 1X ONCE IV Last administered on 01/16/19at 12:09; Start 01/16/19 at 11:00; Stop 01/16/19 at 11:59; Status DC Neomycin/ Polymyxin/ Bacitracin (Triple Antibiotic Ointment) 1 pkt 1X ONCE TP Last administered on 01/16/19at 12:00; Start 01/16/19 at 11:30; Stop 01/16/19 at 11:31; Status DC Lidocaine/ Epinephrine (LIDOCAINE 2%-EPI 1:100,000 multi-dose) 20 ml 1X ONCE IJ Last administered on 01/16/19at 12:10; Start 01/16/19 at 11:30; Stop 01/16/19 at 11:31; Status DC Diphtheria/ Tetanus/Acell Pertussis (Boostrix) 0.5 ml ONCE ONCE VAX IM Last administered on 01/16/19at 12:13; Start 01/16/19 at 11:45; Stop 01/16/19 at 11:46; Status DC Multi-Ingredient Mouthwash/Gargle (Gi Cocktail) 20 ml 1X ONCE PO Last administered on 01/16/19at 12:19; Start 01/16/19 at 12:30; Stop 01/16/19 at 12:31; Status DC Multi-Ingredient Mouthwash/Gargle (Gi Cocktail) 20 ml STK-MED ONCE .ROUTE ; Start 01/16/19 at 12:14; Stop 01/16/19 at 12:15; Status DC Sodium Chloride 1,000 ml @ 1,000 mls/hr 1X ONCE IV Last administered on 01/16/19at 13:26; Start 01/16/19 at 13:30; Stop 01/16/19 at 14:29; Status DC Lorazepam (Ativan Inj) 0.5 mg 1X ONCE IV Last administered on 01/16/19at 13:48; Start 01/16/19 at 14:00; Stop 01/16/19 at 14:01; Status DC Ondansetron HCl (Zofran) 4 mg PRN Q8HRS PRN IV NAUSEA/VOMITING; Start 01/16/19 at 14:15; Stop 01/17/19 at 14:14 Sodium Chloride 1,000 ml @ 150 mls/hr Q6H40M IV Last administered on 01/16/19at 15:00; Start 01/16/19 at 15:00; Stop 01/17/19 at 04:18; Status DC Buspirone HCl (Buspar) 5 mg PRN TID PRN PO anxiety; Start 01/16/19 at 16:15 Lorazepam (Ativan) 0.5 mg PRN Q8HRS PRN PO ANXIETY / AGITATION Last administered on 01/16/19at 21:05; Start 01/16/19 at 16:15 Lorazepam (Ativan Inj) 0.5 mg PRN Q4HRS PRN IV ANXIETY / AGITATION Last administered on 01/17/19at 10:59; Start 01/16/19 at 16:15 Acetaminophen (Tylenol) 650 mg PRN Q6HRS PRN PO pain; Start 01/16/19 at 16:15 Sodium Chloride 1,000 ml @ 150 mls/hr Q6H40M IV ; Start 01/17/19 at 10:00; Stop 01/17/19 at 10:00; Status DC Ringer's Solution 1,000 ml @ 150 mls/hr Q6H40M IV Last administered on 01/17/19at 11:01; Start 01/17/19 at 10:00 Allergies Allergies: Coded Allergies: No Known Drug Allergies (Unverified , 01/16/19) ROS Review of System As per HPI Physical Exam Physical Exam General: No acute distress HEENT: Atraumatic, PERRLA, EOMI, Mucous membr. moist/pink Lungs: Clear to auscultation, Normal air movement Heart: S1S2, RRR, no gallops, no murmurs Abdomen: Normal bowel sounds, Soft, No tenderness, Extremities: No clubbing, No cyanosis, No edema, Right elbow laceration Skin: No rashes, No breakdown, No significant lesion Neuro: Grossly Normal Psych/Mental Status: Mental status NL, Mood NL - Vital Signs Vital Signs Date Time Temp Pulse Resp B/P (MAP) Pulse Ox O2 Delivery O2 Flow Rate FiO2 01/17/19 11:00 98.6 58 18 125/74 (91) 99 Room Air 98.6 Assessment & Plan ONEIDA - Suspect vasomotor nephropathy with Hx of vomiting and diarrhea. Granular casts on UA, No micr hematuria, Low grade Proteinuria Improved Renal function with Aggressive IVF E-Lytes stable Avoid NSAID's, No Nephrotoxins, Monitor Supportive care Bilat Flank pain - Chronic, Intemittent Renal US N/V -? Marijuana H/O testicular cancer - no f/u since his orchiectomy at age 13. This was 2/2 an undescended testes. Discussed at great length with Patient Labs Labs Laboratory Tests Test 01/16/19 10:30 01/16/19 20:35 01/17/19 10:42 White Blood Count 18.3 x10^3/uL (4.0-11.0) 8.6 x10^3/uL (4.0-11.0) Red Blood Count 6.17 x10^6/uL (4.30-5.70) 4.86 x10^6/uL (4.30-5.70) Hemoglobin 18.6 g/dL (13.0-17.5) 15.2 g/dL (13.0-17.5) Hematocrit 55.0 % (39.0-53.0) 43.9 % (39.0-53.0) Mean Corpuscular Volume 89 fL (79-100) 90 fL (79-100) Mean Corpuscular Hemoglobin 30 pg (25-35) 31 pg (25-35) Mean Corpuscular Hemoglobin Concent 34 g/dL (31-37) 35 g/dL (31-37) Red Cell Distribution Width 13.1 % (11.5-14.5) 12.9 % (11.5-14.5) Platelet Count 383 x10^3/uL (140-400) 225 x10^3/uL (140-400) Neutrophils (%) (Auto) 84 % (31-73) 71 % (31-73) Lymphocytes (%) (Auto) 6 % (24-48) 19 % (24-48) Monocytes (%) (Auto) 10 % (0-9) 9 % (0-9) Eosinophils (%) (Auto) 0 % (0-3) 1 % (0-3) Basophils (%) (Auto) 0 % (0-3) 0 % (0-3) Neutrophils # (Auto) 15.4 x10^3uL (1.8-7.7) 6.1 x10^3uL (1.8-7.7) Lymphocytes # (Auto) 1.1 x10^3/uL (1.0-4.8) 1.6 x10^3/uL (1.0-4.8) Monocytes # (Auto) 1.8 x10^3/uL (0.0-1.1) 0.7 x10^3/uL (0.0-1.1) Eosinophils # (Auto) 0.0 x10^3/uL (0.0-0.7) 0.1 x10^3/uL (0.0-0.7) Basophils # (Auto) 0.0 x10^3/uL (0.0-0.2) 0.0 x10^3/uL (0.0-0.2) Segmented Neutrophils % 86 % (35-66) Band Neutrophils % 2 % (0-9) Lymphocytes % 4 % (24-48) Atypical Lymphocytes % (Manual) 1 % (0-0) Monocytes % 7 % (0-10) Platelet Estimate Adequate (ADEQUATE) Sodium Level 138 mmol/L (136-145) Potassium Level 3.7 mmol/L (3.5-5.1) Chloride Level 95 mmol/L (98-107) Carbon Dioxide Level 24 mmol/L (21-32) Anion Gap 19 (6-14) Blood Urea Nitrogen 28 mg/dL (8-26) Creatinine 4.7 mg/dL (0.7-1.3) Estimated GFR (Cockcroft-Gault) 14.9 BUN/Creatinine Ratio 6 (6-20) Glucose Level 129 mg/dL (70-99) Calcium Level 10.2 mg/dL (8.5-10.1) Total Bilirubin 1.1 mg/dL (0.2-1.0) Aspartate Amino Transf (AST/SGOT) 24 U/L (15-37) Alanine Aminotransferase (ALT/SGPT) 22 U/L (16-63) Alkaline Phosphatase 66 U/L (46-116) Creatine Kinase 273 U/L (39-308) Total Protein 10.4 g/dL (6.4-8.2) Albumin 5.7 g/dL (3.4-5.0) Albumin/Globulin Ratio 1.2 (1.0-1.7) Lipase 67 U/L (73-393) Urine Collection Type Unknown Urine Color Jenny Urine Clarity Cloudy Urine pH 5.0 Urine Specific [place] 1.025 Urine Protein 100 mg/dL (NEG-TRACE) Urine Glucose (UA) Negative mg/dL (NEG) Urine Ketones (Stick) Trace mg/dL (NEG) Urine Blood Negative (NEG) Urine Nitrite Negative (NEG) Urine Bilirubin Small (NEG) Urine Urobilinogen Dipstick 0.2 mg/dL (0.2 mg/dL) Urine Leukocyte Esterase Trace (NEG) Urine RBC 0 /HPF (0-2) Urine WBC 5-10 /HPF (0-4) Urine Squamous Epithelial Cells Occ /LPF Urine Transitional Epithelial Cells Occ /LPF Urine Bacteria 0 /HPF (0-FEW) Urine Hyaline Casts Many /HPF Urine Granular Casts Few /HPF Urine Mucus Mod /LPF Urine Random Creatinine 578.0 mg/dL (Not Establ.) Urine Random Total Protein 109.6 mg/dL (Not Establ.) Laboratory Tests Test 01/16/19 20:35 01/17/19 10:42 Urine Collection Type Unknown Urine Color Jenny Urine Clarity Cloudy Urine pH 5.0 Urine Specific [place] 1.025 Urine Protein 100 mg/dL (NEG-TRACE) Urine Glucose (UA) Negative mg/dL (NEG) Urine Ketones (Stick) Trace mg/dL (NEG) Urine Blood Negative (NEG) Urine Nitrite Negative (NEG) Urine Bilirubin Small (NEG) Urine Urobilinogen Dipstick 0.2 mg/dL (0.2 mg/dL) Urine Leukocyte Esterase Trace (NEG) Urine RBC 0 /HPF (0-2) Urine WBC 5-10 /HPF (0-4) Urine Squamous Epithelial Cells Occ /LPF Urine Transitional Epithelial Cells Occ /LPF Urine Bacteria 0 /HPF (0-FEW) Urine Hyaline Casts Many /HPF Urine Granular Casts Few /HPF Urine Mucus Mod /LPF Urine Random Creatinine 578.0 mg/dL (Not Establ.) Urine Random Total Protein 109.6 mg/dL (Not Establ.) White Blood Count 8.6 x10^3/uL (4.0-11.0) Red Blood Count 4.86 x10^6/uL (4.30-5.70) Hemoglobin 15.2 g/dL (13.0-17.5) Hematocrit 43.9 % (39.0-53.0) Mean Corpuscular Volume 90 fL (79-100) Mean Corpuscular Hemoglobin 31 pg (25-35) Mean Corpuscular Hemoglobin Concent 35 g/dL (31-37) Red Cell Distribution Width 12.9 % (11.5-14.5) Platelet Count 225 x10^3/uL (140-400) Neutrophils (%) (Auto) 71 % (31-73) Lymphocytes (%) (Auto) 19 % (24-48) Monocytes (%) (Auto) 9 % (0-9) Eosinophils (%) (Auto) 1 % (0-3) Basophils (%) (Auto) 0 % (0-3) Neutrophils # (Auto) 6.1 x10^3uL (1.8-7.7) Lymphocytes # (Auto) 1.6 x10^3/uL (1.0-4.8) Monocytes # (Auto) 0.7 x10^3/uL (0.0-1.1) Eosinophils # (Auto) 0.1 x10^3/uL (0.0-0.7) Basophils # (Auto) 0.0 x10^3/uL (0.0-0.2) Review All relevant outside records, renal labs, imaging studies, telemetry/EKG's were reviewed. QUINCY GOMES MD January 17, 2019 12:32
[2019-01-17 15:00] VITALS: BP 112/57
[2019-01-17] MEDS: traMADol 50 MG TABLET PO PRN ×2 (15:03→20:58)
--- NOTE | 2019-01-17 16:46 | RAD ---
Renal ultrasound 01/17/2019 CLINICAL INDICATION: Resolving acute kidney injury, flank pain. COMPARISON: None. Findings: Right kidney measures 10.6 cm in length without hydronephrosis or abnormal perinephric fluid collection. The partially distended urinary bladder is unremarkable. The visualized upper abdominal aorta and IVC are unremarkable. Left kidney measures 10.4 cm in length without hydronephrosis or perinephric fluid collection. IMPRESSION: Both kidneys present without hydronephrosis. Electronically signed by: Clay Lang MD (01/17/2019 4:44 PM) [id number]
[2019-01-17 19:00] VITALS: BP 118/73
[2019-01-17 23:00] VITALS: BP 117/65
[2019-01-17 23:08] LABS: SODIUM, URINE <60 mmol/L (Not Estab.); UR POTASSIUM >100.0 mmol/L (Not Estab.)
--- NOTE | 2019-01-18 00:41 | NUR ---
RN realized that pt's wound (R elbow laceration) has not been charted. Wound intervention added and wound care nurse consulted. At this time, Dr. Johnson give the okay to hold off on schedule, continuos LR fluid for tonight as pt do not want it tonight and he is drinking enough PO with labs coming down within normal ranges. Will continue to monitor pt closely.
[2019-01-18] MEDS: traMADol 50 MG TABLET PO PRN (04:57)
[2019-01-18] MEDS: IV RINGERS,LACTATED 1000ML 1,000 ML IV SCH ×2 (06:00→12:40)
[2019-01-18 06:53] LABS: BASO % 1 % (0-3); EOS # 0.1 x10^3/uL (0.0-0.7); EOS % 2 % (0-3); HEMATOCRIT 42.1 % (39.0-53.0); HEMOGLOBIN 14.6 g/dL (13.0-17.5); LYMPH # 1.7 x10^3/uL (1.0-4.8); LYMPH % 25 % (24-48); MEAN CORPUSCULAR HEMOGLOBIN 31 pg (25-35); MEAN CORPUSCULAR HGB CONC 35 g/dL (31-37); MEAN CORPUSCULAR VOLUME 91 fL (79-100); MONO # 0.6 x10^3/uL (0.0-1.1); MONO % 9 % (0-9); NEUT # 4.3 x10^3uL (1.8-7.7); NEUT % 64 % (31-73); PLATELET COUNT 185 x10^3/uL (140-400); RED BLOOD COUNT 4.65 x10^6/uL (4.30-5.70); WHITE BLOOD COUNT 6.8 x10^3/uL (4.0-11.0)
[2019-01-18 07:00] VITALS: BP 111/57
[2019-01-18 07:01] LABS: ALBUMIN 3.4 g/dL (3.4-5.0); CALCIUM 8.4 mg/dL (8.5-10.1); CREATININE 0.9 mg/dL (0.7-1.3); GFR 100.5; PHOSPHORUS 3.7 mg/dL (2.6-4.7); POTASSIUM 3.5 mmol/L (3.5-5.1)
[2019-01-18 11:00] VITALS: BP 128/78
[2019-01-18 15:00] VITALS: BP 138/73
--- NOTE | 2019-01-18 15:53 | NUR ---
Discharge Note: SAGAR RUSH Discharge instructions and discharge home medications reviewed with Patient and a copy given. All questions have been answered and understanding verbalized. The following instructions and handouts were given: N/V/D, acute kidney injury Discontinued lines and drains: Peripheral IV intact. Patient discharged to Home or Self Care with Self via Ambulated
--- NOTE | 2019-01-18 19:06 | PDOC3 ---
Discharge Summary Visit Information Date of Admission: January 16, 2019 Date of Discharge: January 18, 2019 Admitting Diagnosis: acute renal failure Final Diagnosis Problems Medical Problems: (1) Laceration Status: Acute (2) Nausea vomiting and diarrhea, secondary to marihuana abuse Status: Acute (3) Renal failure Status: Acute history of undescended testicle status post resection Brief Hospital Course Allergies Allergies Coded Allergies Type Severity Reaction Last Updated Verified No Known Drug Allergies 01/16/19 No Vital Signs Vital Signs Date Time Temp Pulse Resp B/P (MAP) Pulse Ox O2 Delivery O2 Flow Rate FiO2 01/18/19 15:00 98.6 77 18 138/73 (94) 98 Room Air 98.6 Lab Results Laboratory Tests Test 01/16/19 20:35 01/17/19 10:42 01/18/19 05:40 Urine Collection Type Unknown Urine Color Jenny Urine Clarity Cloudy Urine pH 5.0 Urine Specific Wayne 1.025 Urine Protein 100 mg/dL (NEG-TRACE) Urine Glucose (UA) Negative mg/dL (NEG) Urine Ketones (Stick) Trace mg/dL (NEG) Urine Blood Negative (NEG) Urine Nitrite Negative (NEG) Urine Bilirubin Small (NEG) Urine Urobilinogen Dipstick 0.2 mg/dL (0.2 mg/dL) Urine Leukocyte Esterase Trace (NEG) Urine RBC 0 /HPF (0-2) Urine WBC 5-10 /HPF (0-4) Urine Squamous Epithelial Cells Occ /LPF Urine Transitional Epithelial Cells Occ /LPF Urine Bacteria 0 /HPF (0-FEW) Urine Hyaline Casts Many /HPF Urine Granular Casts Few /HPF Urine Mucus Mod /LPF Urine Random Creatinine 578.0 mg/dL (Not Establ.) Urine Random Total Protein 109.6 mg/dL (Not Establ.) Urine Sodium <60 mmol/L (Not Estab.) Urine Potassium >100.0 mmol/L (Not Estab.) Urine Chloride <60 mmol/L (Not Estab.) White Blood Count 8.6 x10^3/uL (4.0-11.0) 6.8 x10^3/uL (4.0-11.0) Red Blood Count 4.86 x10^6/uL (4.30-5.70) 4.65 x10^6/uL (4.30-5.70) Hemoglobin 15.2 g/dL (13.0-17.5) 14.6 g/dL (13.0-17.5) Hematocrit 43.9 % (39.0-53.0) 42.1 % (39.0-53.0) Mean Corpuscular Volume 90 fL (79-100) 91 fL (79-100) Mean Corpuscular Hemoglobin 31 pg (25-35) 31 pg (25-35) Mean Corpuscular Hemoglobin Concent 35 g/dL (31-37) 35 g/dL (31-37) Red Cell Distribution Width 12.9 % (11.5-14.5) 13.0 % (11.5-14.5) Platelet Count 225 x10^3/uL (140-400) 185 x10^3/uL (140-400) Neutrophils (%) (Auto) 71 % (31-73) 64 % (31-73) Lymphocytes (%) (Auto) 19 % (24-48) 25 % (24-48) Monocytes (%) (Auto) 9 % (0-9) 9 % (0-9) Eosinophils (%) (Auto) 1 % (0-3) 2 % (0-3) Basophils (%) (Auto) 0 % (0-3) 1 % (0-3) Neutrophils # (Auto) 6.1 x10^3uL (1.8-7.7) 4.3 x10^3uL (1.8-7.7) Lymphocytes # (Auto) 1.6 x10^3/uL (1.0-4.8) 1.7 x10^3/uL (1.0-4.8) Monocytes # (Auto) 0.7 x10^3/uL (0.0-1.1) 0.6 x10^3/uL (0.0-1.1) Eosinophils # (Auto) 0.1 x10^3/uL (0.0-0.7) 0.1 x10^3/uL (0.0-0.7) Basophils # (Auto) 0.0 x10^3/uL (0.0-0.2) 0.0 x10^3/uL (0.0-0.2) Sodium Level 143 mmol/L (136-145) 143 mmol/L (136-145) Potassium Level 3.8 mmol/L (3.5-5.1) 3.5 mmol/L (3.5-5.1) Chloride Level 107 mmol/L (98-107) 106 mmol/L (98-107) Carbon Dioxide Level 25 mmol/L (21-32) 28 mmol/L (21-32) Anion Gap 11 (6-14) 9 (6-14) Blood Urea Nitrogen 25 mg/dL (8-26) 23 mg/dL (8-26) Creatinine 1.3 mg/dL (0.7-1.3) 0.9 mg/dL (0.7-1.3) Estimated GFR (Cockcroft-Gault) 65.7 100.5 Glucose Level 91 mg/dL (70-99) 93 mg/dL (70-99) Calcium Level 8.5 mg/dL (8.5-10.1) 8.4 mg/dL (8.5-10.1) Phosphorus Level 2.6 mg/dL (2.6-4.7) 3.7 mg/dL (2.6-4.7) Albumin 3.6 g/dL (3.4-5.0) 3.4 g/dL (3.4-5.0) Laboratory Tests Test 01/18/19 05:40 White Blood Count 6.8 x10^3/uL (4.0-11.0) Red Blood Count 4.65 x10^6/uL (4.30-5.70) Hemoglobin 14.6 g/dL (13.0-17.5) Hematocrit 42.1 % (39.0-53.0) Mean Corpuscular Volume 91 fL (79-100) Mean Corpuscular Hemoglobin 31 pg (25-35) Mean Corpuscular Hemoglobin Concent 35 g/dL (31-37) Red Cell Distribution Width 13.0 % (11.5-14.5) Platelet Count 185 x10^3/uL (140-400) Neutrophils (%) (Auto) 64 % (31-73) Lymphocytes (%) (Auto) 25 % (24-48) Monocytes (%) (Auto) 9 % (0-9) Eosinophils (%) (Auto) 2 % (0-3) Basophils (%) (Auto) 1 % (0-3) Neutrophils # (Auto) 4.3 x10^3uL (1.8-7.7) Lymphocytes # (Auto) 1.7 x10^3/uL (1.0-4.8) Monocytes # (Auto) 0.6 x10^3/uL (0.0-1.1) Eosinophils # (Auto) 0.1 x10^3/uL (0.0-0.7) Basophils # (Auto) 0.0 x10^3/uL (0.0-0.2) Sodium Level 143 mmol/L (136-145) Potassium Level 3.5 mmol/L (3.5-5.1) Chloride Level 106 mmol/L (98-107) Carbon Dioxide Level 28 mmol/L (21-32) Anion Gap 9 (6-14) Blood Urea Nitrogen 23 mg/dL (8-26) Creatinine 0.9 mg/dL (0.7-1.3) Estimated GFR (Cockcroft-Gault) 100.5 Glucose Level 93 mg/dL (70-99) Calcium Level 8.4 mg/dL (8.5-10.1) Phosphorus Level 3.7 mg/dL (2.6-4.7) Albumin 3.4 g/dL (3.4-5.0) Brief Hospital Course Mr. Fuentes is a 28 old male who was admitted due to nausea vomiting and diarrhea which most likely was associated with marijuana use. The patient got severely dehydrated and as a consequence suffered prerenal septemia. His prerenal septemia was resolved with IV fluid resuscitation the patient describes having a chronic pain under his rib cage and he is very afraid of doctors she says and has not seek attention in the long time. He usually takes ibuprofen for his pain and I have explained to him that ibuprofen can be deleterious to his gastric mucosa. I have also given him recommendations regarding the use of marijuana which Prompted this episodes of intractable nausea and vomiting. The patient is not very keen on following up with a primary care physician since he says that he doesn't have time for it due to his travel schedule for work. Nevertheless I have encourage him to seek the attention of a physician in noted to also have surveillance on his testicle since he had history of undescended testis and he could be potentially at increased risk for malignancy and the remainder testicle. Signs and symptoms of alarm were discussed prior to discharge the patient was hemodynamically stable and good condition to be dismissed home his concerns were addressed to the best of my abilities Gen.: well-developed well-nourished in no apparent distress Head: Normal shape atraumatic Eyes: Pupils equal reactive to light and accommodation, normal conjunctivae and lids Ears: Normal shape Nose: Normal shape no trauma Mouth: No exudates of the back of throat no thrush no lesions Neck: Supple no JVD no carotid bruit or lymphadenopathy no thyromegaly Chest: Lungs clear to auscultation with good inspiratory effort no crackles rales or rhonchi Cardiovascular: S1-S2 regular rhythm no murmurs gallops or rubs Abdomen: Bowel sounds present soft nontender no hepatosplenomegaly appreciated sign Extremities: No clubbing no cyanosis no edema peripheral pulses palpated bilaterally Neurological: Alert awake oriented in person time place and situation, cranial nerves II through XII intact, no motor or sensory deficits appreciated Psych: Appropriate mood, cooperative Discharge Information Condition at Discharge: Improved Follow Up: Weeks Disposition/Orders: D/C to Home No Active Prescriptions or Reported Meds YANNICK HOLLIDAY MD January 18, 2019 19:06
== END 2019-01-18 15:58 | disposition home or self-care (01) | DRG 918 ==
LOC: ER 10:28 → 5 NORTH 13:35
PROVIDERS: ADMIT Family Medicine; ATTEND Family Medicine
PROC: 0HQDXZZ Repair Right Lower Arm Skin, External Approach (ICD-10-PCS; principal; 2019-01-16)
DX: T40.7X1A Poisoning by cannabis (derivatives), accidental (unintentional), initial encounter (principal); N17.9 Acute kidney failure, unspecified; S51.011A Laceration without foreign body of right elbow, initial encounter; W18.39XA Other fall on same level, initial encounter; E86.0 Dehydration; F41.9 Anxiety disorder, unspecified; F12.10 Cannabis abuse, uncomplicated; G89.29 Other chronic pain; Y93.89 Activity, other specified; Y92.89 Other specified places as the place of occurrence of the external cause; Y99.8 Other external cause status; Z85.47 Personal history of malignant neoplasm of testis; Z81.8 Family history of other mental and behavioral disorders
CPT/HCPCS: 12001; 36415; 73080; 76770; 80053; 80069; 81001; 82436; 82550; 82570; 83690; 84133; 84156; 84300; 85007; 85025; 87086; 90471; 90715; 96361; 96374; 96375; J1885; J2060; J2405; J3490; J7030; J7120; 99285-25

== ENCOUNTER 2019-01-27 17:27 | Emergency (ER) | payer OTHER ==
[~2019-01-27] VITALS: Ht 175.3 cm; Wt 81.6 kg
[2019-01-27 17:32] VITALS: BP 111/62
--- NOTE | 2019-01-27 18:02 | PHYS DOC ---
Past Medical History Past Medical History: No Pertinent History (LAMONT PALMER APRN) Past Surgical History: Other Additional Past Surgical Histo: hernia (LAMONT PALMER APRN) Alcohol Use: Occasionally Drug Use: Marijuana (LAMONT PALMER APRN) Adult General Chief Complaint Chief Complaint: SHOULDER INJURY HPI HPI Patient is a 28 year old [male] who presents with [left shoulder pain. 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 states approximately 10 days ago he and some coworkers have been roughhousing a little bit, he felt a pop and some pain in his left shoulder at that time. Reports pain has continued since that time despite use of Tylenol and ibuprofen and some ice. Reports he does not have a primary care provider locally, he has had no follow up, but does have one in [place]. States he had been seen here approximately 10 days ago for other concerns as well as a right elbow laceration which is well approximated and well-healed this time. Reports he is able to move his arm fully without any discomforts except when he brings it laterally and forward . ] (LAMONT PALMER APRN) Review of Systems Review of Systems Constitutional: Denies fever or chills [] Eyes: Denies change in visual acuity, redness, or eye pain [] HENT: Denies nasal congestion or sore throat [] Respiratory: Denies cough or shortness of breath [] Cardiovascular: No additional information not addressed in HPI [] GI: Denies abdominal pain, nausea, vomiting, bloody stools or diarrhea [] : Denies dysuria or hematuria [] Musculoskeletal: Denies back pain or joint pain, does report pain to left shoulder upon sutures in place to right elbow. Anterior movement. [] Integument: Denies rash or skin lesions. [] Neurologic: Denies headache, focal weakness or sensory changes [] Endocrine: Denies polyuria or polydipsia [] All other systems were reviewed and found to be within normal limits, except as documented in this note. (LAMONT PALMER APRN) Current Medications Current Medications Current Medications Medications (Trade) Dose Ordered Sig/Candelaria Start Time Stop Time Status Last Admin Dose Admin Neomycin/ Polymyxin/ Bacitracin (Triple Antibiotic Ointment) 1 pkt STK-MED ONCE 01/27/19 20:01 01/27/19 20:02 DC (SELENE MCGEE DO) Allergies Allergies Allergies Coded Allergies Type Severity Reaction Last Updated Verified No Known Drug Allergies 01/16/19 No (SELENE MCGEE DO) Physical Exam Physical Exam Constitutional: Well developed, well nourished, no acute distress, non-toxic appearance. [] HENT: Normocephalic, atraumatic, bilateral external ears normal, oropharynx moist, no oral exudates, nose normal. [] Eyes: PERRLA, EOMI, conjunctiva normal, no discharge. [] Neck: Normal range of motion, no tenderness, supple, no stridor. [] Cardiovascular:Heart rate regular rhythm, no murmur [] Lungs & Thorax: Bilateral breath sounds clear to auscultation [] Abdomen: Bowel sounds normal, soft, no tenderness, no masses, no pulsatile masses. [] Skin: Warm, dry, no erythema, no rash. Sutures intact to right elbow. Well approximately. No purulence. No erythema. No tenderness. [] Back: No tenderness, no CVA tenderness. [] Extremities: No tenderness, no cyanosis, no clubbing, ROM intact, no edema. Full range of motion noted to arm able to raise arm laterally anteriorly and posteriorly able to rotate pulses and sensation intact [] Neurologic: Alert and oriented X 3, normal motor function, normal sensory function, no focal deficits noted. [] Psychologic: Affect normal, judgement normal, mood normal. [] (LAMONT PALMER APRN) Current Patient Data Vital Signs Vital Signs Date Time Temp Pulse Resp B/P (MAP) Pulse Ox O2 Delivery O2 Flow Rate FiO2 01/27/19 17:32 98.5 62 17 111/62 (78) 98 Room Air 98.5 (SELENE MCGEE DO) EKG EKG [] (LAMONT PALMER APRN) Radiology/Procedures Radiology/Procedures [Dr Mcgee evaluates images, no fracture or dislocation identified. Recommend follow up with Ortho to evaluate for further assessment and evaluation of shoulder. ] (LAMONT PALMER APRN) Radiology/Procedures PROCEDURE: SHOULDER 2+V LEFT Three-view left shoulder radiographs 01/27/2019 CLINICAL HISTORY: Injury to the left shoulder. AP internal and external rotation and transscapular digital radiographs of the left shoulder were obtained. No fracture or dislocation of the left shoulder is seen. No significant degenerative changes are noted. IMPRESSION: No fracture or dislocation of the left shoulder is seen. Electronically signed by: Cecilio Fernandez MD (01/27/2019 7:41 PM) [facility] (SELENE MCGEE DO) Course & Med Decision Making Course & Med Decision Making Pertinent Labs and Imaging studies reviewed. (See chart for details) [Discussed x-ray findings the patient. Discussed no acute fracture-dislocation this time. Discussed patient potentially did have dislocation when he had his initial injury. Advised to continue to use ice ibuprofen. Discussed following up with primary care provider in [place] to consider MRI if he continues to have discomfort. We'll provide contact for ortho locally here, patient reports he w ill call them tomorrow to determine if he can get in there and see what his insurance will cover with that visit. Reports if his insurance is not able to cover he may go to [place] in this testing done there. Discussed use the sling here today patient agrees. Reports he does not want take time off work as this would affect him financially. Advised patient to try to reduce the downward force using without left shoulder until is able to heal. Patient agreeable with plan no further questions or concerns] Sutures removed from right elbow, noted to be embedded in skin. Removed sutures. (LAMONT PALMER APRN) Dragon Disclaimer Dragon Disclaimer This electronic medical record was generated, in whole or in part, using a voice recognition dictation system. (LAMONT PALMER APRN) Departure Departure Impression: Primary Impression: Left anterior shoulder pain Disposition: 01 HOME, SELF-CARE Condition: GOOD Referrals: NO PCP (PCP) BRISA BHAT MD Patient Instructions: Shoulder Pain, [id number], Shoulder, Range of Motion Exercises Additional Instructions: As we discussed use the sling to help support your arm. Continue using Tylenol and ibuprofen and ice for discomfort in the shoulder. Try to limit forceful activity with that arm to help decrease stress and discomfort in your arm. Follow-up with Dr. Bhat. Orthopedics, tomorrow to determine if they are able to do further testing and your insurance coverage. If they are unable to get you in or your insurance does not cover it consider going to [place] as we had discussed. Scripts No Active Prescriptions or Reported Meds Attending Signature Attending Signature I have reviewed the PA/HEATER PLANER OPERATOR's note and plan of care. I was available for consultation as needed during the patient's visit in the emergency department. I agree with the clinical impression, plan, and disposition. (SELENE MCGEE DO) LAMONT PALMER APRN January 27, 2019 18:02 SELENE MCGEE DO January 28, 2019 03:18
--- NOTE | 2019-01-27 19:44 | RAD ---
Three-view left shoulder radiographs 01/27/2019 CLINICAL HISTORY: Injury to the left shoulder. AP internal and external rotation and transscapular digital radiographs of the left shoulder were obtained. No fracture or dislocation of the left shoulder is seen. No significant degenerative changes are noted. IMPRESSION: No fracture or dislocation of the left shoulder is seen. Electronically signed by: Cecilio Fernandez MD (01/27/2019 7:41 PM) [employer]
[2019-01-27] MEDS ORDERED: NEOMY/BACITR/POLYMYXIN OINT PACKET. TP ONE (20:01)
== END 2019-01-27 20:17 | disposition home or self-care (01) ==
LOC: ER 17:27
DX: M25.512 Pain in left shoulder (principal); S51.011D Laceration without foreign body of right elbow, subsequent encounter; X58.XXXD Exposure to other specified factors, subsequent encounter
CPT/HCPCS: 73030; 99284